=== PATIENT | male | born 1975 | race Caucasian/White ===

== ENCOUNTER 2024-07-24 10:44 | Emergency (ER) | payer OTHER ==
[~2024-07-24] VITALS: Ht 170.2 cm; Wt 58.0 kg
[2024-07-24 11:34] VITALS: O2SAT 100
[2024-07-24] MEDS ORDERED: ACETAMINOPHEN 325MG TABLET PO ONE (12:15)
[2024-07-24 12:24] LABS: HEMATOCRIT. 41.9 % (42.0-52.0); HEMOGLOBIN. 13.6 g/dL (14.0-18.0); MEAN CORPUSCULAR HGB CONC 32.4 g/dL (31.0-37.0); MEAN CORPUSCULAR VOLUME 92.6 fL (80.0-94.0); MEAN PLATELET VOLUME 8.9 fl (7.4-10.4); PLATELET 233 x1000/uL (130-400); RED BLOOD CELL COUNT 4.52 mill/uL (4.7-6.1); RED CELL DISTRIBUTION WIDTH 13.2 % (11.6-14.6); WHITE BLOOD COUNT 11.8 x1000/uL (4.5-11.0)
[2024-07-24 12:27] LABS: DIFFERENTIAL COMMENT 1
[2024-07-24 12:34] LABS: CHLORIDE 98 mEq/L (98-107); SODIUM 126 mEq/L (136-145)
[2024-07-24 12:35] LABS: CALCIUM 9.3 mg/dL (8.7-10.4); CARBON DIOXIDE 28 mEq/L (21-32)
[2024-07-24 12:40] LABS: CREATININE 0.9 mg/dL (0.6-1.3); UREA NITROGEN BLOOD 12 mg/dL (9-23)
[2024-07-24 12:42] LABS: ALANINE AMINOTRANSFERASE 19 IU/L (10-49); ALBUMIN 3.7 g/dL (3.2-4.8); ASPARTATE AMINOTRANSFERASE 21 IU/L (<34); PROTEIN TOTAL 6.5 g/dL (6.0-8.3)
[2024-07-24 12:47] LABS: GLUCOSE 405 mg/dL (70-105)
[2024-07-24] MEDS: LACTATED RINGERS 1,000 ML IV SCH (13:48)
[2024-07-24] MEDS: ACETAMINOPHEN 325MG TABLET PO NR (13:58)
[2024-07-24] MEDS: VANCOMYCIN 1.5GM/250ML 250 ML IV SCH (13:58)
[2024-07-24] MEDS ORDERED: PIPERACILLIN/TAZO 3.375G/50ML 50 ML IV SCH (14:00)
[2024-07-24] MEDS: INSULIN REGULAR (HUMULIN R) 1000UNITS/10ML VIAL SUBCUT ONE (14:19)
[2024-07-24 14:32] LABS: PLATELET ESTIMATE NORMAL
[2024-07-24 15:55] VITALS: BP 104/70; PULSE 103; RESP 20; TEMP 37.11408; O2SAT 97
== END 2024-07-24 16:25 | disposition left against medical advice (07) ==
LOC: ER 13:01 → EDBEDREQTM 14:20 → EDBEDREQ 14:20 → CANBEDREQ 16:12 → ER 16:25
DX: L97.529 Non-pressure chronic ulcer of other part of left foot with unspecified severity (principal); R73.9 Hyperglycemia, unspecified
CPT/HCPCS: 80053; 82962; 85025; 87040; 36415; 73630; 96365; 96372; 99285; J3370; J1815; Z7610 ×2; J2543

== ENCOUNTER 2024-08-19 19:06 | Emergency (ER) | payer OTHER ==
[~2024-08-19] VITALS: Ht 180.3 cm; Wt 73.0 kg
[2024-08-19 19:09] VITALS: O2SAT 98
[2024-08-19 19:35] VITALS: TEMP 37.55856; O2SAT 98
[2024-08-19 19:45] LABS: BASOPHILS % 0.2 % (0.0-2.0); EOSINOPHILS % 0.4 % (0.0-5.0); HEMATOCRIT. 37.7 % (42.0-52.0); HEMOGLOBIN. 12.5 g/dL (14.0-18.0); LYMPHOCYTES % 9.9 % (20.0-50.0); MEAN CORPUSCULAR HEMOGLOBIN 29.6 pg (28.0-32.0); MEAN CORPUSCULAR HGB CONC 33.2 g/dL (31.0-37.0); MEAN PLATELET VOLUME 9.8 fl (7.4-10.4); MONOCYTES % 9.4 % (2.0-8.0); NEUTROPHILS % 80.1 % (40.0-76.0); PLATELET 192 x1000/uL (130-400); RED BLOOD CELL COUNT 4.23 mill/uL (4.7-6.1); RED CELL DISTRIBUTION WIDTH 13.4 % (11.6-14.6); WHITE BLOOD COUNT 9.3 x1000/uL (4.5-11.0)
[2024-08-19] MEDS: SODIUM CHLORIDE 0.9% 1000ML BAG (SEPSIS BOLUS) IV ONE (19:54)
[2024-08-19] MEDS: PIPERACILLIN/TAZO 3.375G/50ML 50 ML IV ONE (19:54)
[2024-08-19 19:55] LABS: CHLORIDE 93 mEq/L (98-107); INR 1.1; POTASSIUM 5.3 mEq/L (3.5-5.1); PROTHROMBIN TIME 12.2 sec (9.6-11.0); SODIUM 123 mEq/L (136-145)
[2024-08-19 19:57] LABS: CALCIUM 9.1 mg/dL (8.7-10.4); CARBON DIOXIDE 25 mEq/L (21-32)
[2024-08-19] MEDS: VANCOMYCIN 1G PREMIX 200 ML IV ONE (20:00)
[2024-08-19 20:02] LABS: CREATININE 1.1 mg/dL (0.6-1.3); GLUCOSE 312 mg/dL (70-105); UREA NITROGEN BLOOD 31 mg/dL (9-23)
[2024-08-19 20:04] LABS: ALANINE AMINOTRANSFERASE 46 IU/L (10-49); ALBUMIN 3.6 g/dL (3.2-4.8); ASPARTATE AMINOTRANSFERASE 60 IU/L (<34); BILIRUBIN DIRECT 0.5 mg/dL (<=3.0)
[2024-08-19 20:05] LABS: BILIRUBIN TOTAL 1.2 mg/dL (0.1-1.0); PROTEIN TOTAL 6.2 g/dL (6.0-8.3)
[2024-08-19 21:03] VITALS: PULSE 120; RESP 16
[2024-08-19] MEDS: MORPHINE SULFATE 4 MG/ML INJ (FOR IV/IM USE) IV ONE (21:03)
[2024-08-19 22:40] VITALS: BP 124/88
== END 2024-08-19 22:11 | disposition short-term general hospital (02) ==
LOC: ER 19:06 → EDBEDREQ 20:23 → ER 22:11
DX: E11.621 Type 2 diabetes mellitus with foot ulcer (principal); F17.200 Nicotine dependence, unspecified, uncomplicated; F10.20 Alcohol dependence, uncomplicated; F19.90 Other psychoactive substance use, unspecified, uncomplicated; Z98.890 Other specified postprocedural states; Z85.841 Personal history of malignant neoplasm of brain
CPT/HCPCS: 99285; 96365; 96366; 96375; 80076; 80048; 83605; 85025; 85610; 86850; 86900; 86901; 87040; 36415; 84145; 73630; 96368; J2543; J3370; J2270; J7030

== ENCOUNTER 2025-10-14 10:59 | Inpatient (IN) | payer OTHER ==
[~2025-10-14] VITALS: Ht 182.9 cm; Wt 75.3 kg
[~2025-10-14 10:59] MED LIST: ASPI-1160 PO; COR3 PO; FURO40TA5 MT; LANTUSUD SUBCUT; LEVE500T19 PO; LIP40 PO; METF-416 PO; NICO-786 TP
[2025-10-14 11:01] VITALS: O2SAT 97
[2025-10-14] MEDS: SODIUM CHLORIDE 0.9% 1,000 ML IV ONE (11:40)
[2025-10-14] MEDS: MORPHINE SULFATE 4 MG/ML INJ (FOR IV/IM USE) IV ONE (11:40)
[2025-10-14] MEDS: ONDANSETRON HCL 4MG/2ML INJ IV ONE (11:41)
[2025-10-14 12:05] LABS: BASOPHILS % 0.2 % (0.0-2.0); EOSINOPHILS % 2.0 % (0.0-5.0); HEMATOCRIT. 41.7 % (42.0-52.0); HEMOGLOBIN. 13.3 g/dL (14.0-18.0); LYMPHOCYTES % 19.7 % (20.0-50.0); MEAN PLATELET VOLUME 9.5 fl (7.4-10.4); MONOCYTES % 8.9 % (2.0-8.0); NEUTROPHILS % 69.2 % (40.0-76.0); PLATELET 224 x1000/uL (130-400); RED BLOOD CELL COUNT 4.82 mill/uL (4.7-6.1); RED CELL DISTRIBUTION WIDTH 15.9 % (11.6-14.6)
[2025-10-14 12:30] LABS: CREATININE 0.9 mg/dL (0.6-1.3); UREA NITROGEN BLOOD 18 mg/dL (9-23)
[2025-10-14 12:32] LABS: ASPARTATE AMINOTRANSFERASE 36 IU/L (<34)
[2025-10-14 12:33] LABS: BILIRUBIN DIRECT 0.4 mg/dL (<=3.0); BILIRUBIN TOTAL 1.0 mg/dL (0.1-1.0); PROTEIN TOTAL 6.5 g/dL (6.0-8.3)
[2025-10-14 12:47] LABS: TROPONIN I HIGH SENSITIVITY 5516 ng/L (3.0-53)
[2025-10-14] MEDS: ENOXAPARIN 80MG/0.8ML SYR SUBCUT ONE (13:21)
[2025-10-14] MEDS ORDERED: MAGNESIUM/ALUMINUM HYDROXIDE/SIMETHICONE 30ML UDC PO PRN (14:15)
[2025-10-14] MEDS ORDERED: IPRATROPIUM/ALBUTEROL 0.5-3(2.5)MG/3ML NEB HHN PRN (14:15)
[2025-10-14] MEDS ORDERED: GUAIFENESIN 200MG/10ML SUGAR FREE UDC PO PRN (14:15)
[2025-10-14] MEDS ORDERED: ONDANSETRON HCL 4MG/2ML INJ IV PRN (14:15)
[2025-10-14] MEDS ORDERED: DOCUSATE SODIUM 100MG CAPSULE PO PRN (14:15)
[2025-10-14] MEDS ORDERED: ACETAMINOPHEN 325MG TABLET PO PRN (14:15)
[2025-10-14] MEDS ORDERED: FUROSEMIDE 40MG TABLET PO SCH (14:45)
[2025-10-14] MEDS: LEVETIRACETAM 500MG TABLET PO SCH (14:45)
[2025-10-14] MEDS: INSULIN LISPRO 100 UNITS/ML SUBCUT SCH (14:45)
[2025-10-14] MEDS ORDERED: ASPIRIN 325MG EC TABLET PO ONE (14:45)
[2025-10-14] MEDS: ASPIRIN 81MG TABLET PO SCH (14:45)
[2025-10-14 16:15] LABS: INR 1.1
[2025-10-14] MEDS: BLOOD SUGAR DIAGNOSTIC STRIP TEST SCH (17:00)
[2025-10-14 18:00] VITALS: BP 125/89; PULSE 90; RESP 20; O2SAT 98
[2025-10-14] MEDS: EMPAGLIFLOZIN 10MG TABLET PO SCH (18:24)
[2025-10-14] MEDS: FUROSEMIDE 40MG/4ML VIAL IVP SCH (18:24)
[2025-10-14 19:07] VITALS: BP 118/92; PULSE 92; RESP 17; TEMP 36.4736
[2025-10-14 20:00] VITALS: BP 124/99; PULSE 90; RESP 16; TEMP 36.6; O2SAT 99
[2025-10-14] MEDS: ATORVASTATIN CALCIUM 40MG TABLET PO SCH (20:23)
[2025-10-14] MEDS: INSULIN GLARGINE 100 UNITS/ML SUBCUT SCH (21:51)
[2025-10-14 22:00] VITALS: BP 115/86; PULSE 83; RESP 10; O2SAT 93
[2025-10-14] MEDS: ENOXAPARIN 100MG/ML SYR SUBCUT SCH (23:09)
[2025-10-15] VITALS (12 sets, daily range): BP systolic 94–127; BP diastolic 73–104; PULSE 76–99; RESP 8–23; TEMP 36.1–36.7; O2SAT 90–100
[2025-10-15 00:55] LABS: TROPONIN I HIGH SENSITIVITY 4572 ng/L (3.0-53)
[2025-10-15 05:59] LABS: BASOPHILS % 0.1 % (0.0-2.0); EOSINOPHILS % 2.9 % (0.0-5.0); HEMATOCRIT. 39.8 % (42.0-52.0); HEMOGLOBIN. 12.6 g/dL (14.0-18.0); LYMPHOCYTES % 27.9 % (20.0-50.0); MEAN PLATELET VOLUME 9.8 fl (7.4-10.4); MONOCYTES % 9.5 % (2.0-8.0); NEUTROPHILS % 59.6 % (40.0-76.0); PLATELET 211 x1000/uL (130-400); RED BLOOD CELL COUNT 4.64 mill/uL (4.7-6.1); RED CELL DISTRIBUTION WIDTH 15.8 % (11.6-14.6)
[2025-10-15 06:12] LABS: CREATININE 1.1 mg/dL (0.6-1.3); TROPONIN I HIGH SENSITIVITY 4641 ng/L (3.0-53)
[2025-10-15 06:13] LABS: TRIGLYCERIDE 35 mg/dL (0-150); UREA NITROGEN BLOOD 25 mg/dL (9-23)
[2025-10-15 06:14] LABS: LDL CHOLESTEROL 72 mg/dL (5-100); T4 FREE 1.26 ng/dL (0.89-1.76)
[2025-10-15] MEDS: SPIRONOLACTONE 12.5MG TABLET PO SCH (10:05)
[2025-10-15 23:19] LABS: TROPONIN I HIGH SENSITIVITY 3992 ng/L (3.0-53)
[2025-10-16] VITALS (10 sets, daily range): BP systolic 102–127; BP diastolic 69–100; PULSE 78–91; RESP 10–16; TEMP 36.7–36.9; O2SAT 96–100
[2025-10-16] MEDS: MELATONIN 3MG TABLET PO PRN (02:16)
[2025-10-16] MEDS: DEXTROSE 50% WATER 50ML SYRINGE IV PRN (08:17)
[2025-10-16] MEDS ORDERED: DIPHENHYDRAMINE 50MG/ML VIAL ONE (08:22)
[2025-10-16] MEDS ORDERED: VERAPAMIL HCL 2.5 MG/1 ML 2ML VIAL IV ONE (08:22)
[2025-10-16] MEDS ORDERED: LIDOCAINE HCL 1% 20ML VIAL ONE (08:22)
[2025-10-16] MEDS ORDERED: IODIXANOL 320MG/ML 100 ML BOTTLE IV ONE (08:22)
[2025-10-16] MEDS ORDERED: HEPARIN 1000 UNITS/ML 10ML ONE (08:22)
[2025-10-16] MEDS ORDERED: FENTANYL CITRATE/PF 50MCG/ML 2ML VIAL ONE (08:57)
[2025-10-16] MEDS ORDERED: MIDAZOLAM HCL 2 MG/2 ML VIAL ONE (08:57)
[2025-10-16] MEDS ORDERED: ACETAMINOPHEN 325MG TABLET PO PRN (10:00)
[2025-10-16] MEDS ORDERED: ATROPINE SULFATE 1MG/10ML SYR IV PRN (10:00)
[2025-10-16] MEDS: CLONIDINE 0.1MG TABLET PO PRN (18:08)
[2025-10-16 20:26] LABS: CLARITY URINE CLEAR (CLEAR); COLOR URINE YELLOW (YELLOW); GLUCOSE URINE 1+ (NEGATIVE); KETONES URINE NEGATIVE (NEGATIVE); LEUKOCYTE ESTERASE URINE NEGATIVE (NEGATIVE); NITRITE URINE NEGATIVE (NEGATIVE); OCCULT BLOOD URINE NEGATIVE (NEGATIVE); PH URINE 7.5 (4.5-8.0); PROTEIN URINE NEGATIVE (NEGATIVE); SPECIFIC GRAVITY URINE 1.007 (1.005-1.030); UROBILINOGEN URINE 0.2 E.U./dL (0.2-1.0)
[2025-10-16 20:48] LABS: *AMPHETAMINES SCREEN URINE NEGATIVE (NEGATIVE); *BARBITURATES SCREEN URINE NEGATIVE (NEGATIVE); *BENZODIAZEPINES SCREEN URINE NEGATIVE (NEGATIVE); *COCAINE SCREEN URINE NEGATIVE (NEGATIVE); CANNABINOID URINE SCREEN NEGATIVE (NEGATIVE); ECSTASY MDMA SCREEN URINE NEGATIVE (NEGATIVE); METHADONE URINE SCREEN NEGATIVE (NEGATIVE); OPIATES URINE SCREEN NEGATIVE (NEGATIVE); PHENCYCLIDINE URINE SCREEN NEGATIVE (NEGATIVE)
[2025-10-16 20:59] LABS: BACTERIA URINE TRACE; RBC URINE NONE SEEN /hpf (0-2); SQUAMOUS EPITHELIAL CELL URINE RARE /lpf (RARE/1+); WBC URINE NONE SEEN /hpf (0-2)
[2025-10-17] VITALS: BP 109/75; PULSE 84; RESP 16; TEMP 37; O2SAT 97
[2025-10-17 04:00] VITALS: BP 101/63; PULSE 83; RESP 15; TEMP 36.8; O2SAT 96
[2025-10-17 08:00] VITALS: BP 109/72; PULSE 84; RESP 11; TEMP 36.4; O2SAT 98
[2025-10-17 08:21] LABS: BASOPHILS % 0.1 % (0.0-2.0); EOSINOPHILS % 0.4 % (0.0-5.0); HEMATOCRIT. 39.5 % (42.0-52.0); HEMOGLOBIN. 12.9 g/dL (14.0-18.0); LYMPHOCYTES % 8.1 % (20.0-50.0); MEAN PLATELET VOLUME 9.4 fl (7.4-10.4); MONOCYTES % 8.5 % (2.0-8.0); NEUTROPHILS % 82.9 % (40.0-76.0); PLATELET 211 x1000/uL (130-400); RED BLOOD CELL COUNT 4.69 mill/uL (4.7-6.1); RED CELL DISTRIBUTION WIDTH 15.5 % (11.6-14.6)
[2025-10-17 08:39] LABS: CREATININE 1.1 mg/dL (0.6-1.3); UREA NITROGEN BLOOD 20 mg/dL (9-23)
[2025-10-17 20:00] VITALS: BP 127/93; PULSE 72; RESP 17; TEMP 36.8; O2SAT 100
[2025-10-17] MEDS: INSULIN LISPRO 100 UNITS/ML SUBCUT SCH (23:11)
[2025-10-18] VITALS (7 sets, daily range): BP systolic 104–129; BP diastolic 73–107; PULSE 81–89; RESP 15–19; TEMP 36.6–37.1; O2SAT 100
[2025-10-18] MEDS: LOSARTAN 25 MG TABLET PO SCH (09:30)
[2025-10-18 13:43] LABS: BASOPHILS % 0.4 % (0.0-2.0); EOSINOPHILS % 2.0 % (0.0-5.0); HEMATOCRIT. 43.3 % (42.0-52.0); HEMOGLOBIN. 13.8 g/dL (14.0-18.0); LYMPHOCYTES % 21.7 % (20.0-50.0); MEAN PLATELET VOLUME 9.9 fl (7.4-10.4); MONOCYTES % 10.6 % (2.0-8.0); NEUTROPHILS % 65.3 % (40.0-76.0); PLATELET 231 x1000/uL (130-400); RED BLOOD CELL COUNT 5.08 mill/uL (4.7-6.1); RED CELL DISTRIBUTION WIDTH 15.5 % (11.6-14.6)
[2025-10-18 14:01] LABS: CREATININE 1.1 mg/dL (0.6-1.3); UREA NITROGEN BLOOD 24 mg/dL (9-23)
[2025-10-18] MEDS: ACETAMINOPHEN 325MG TABLET PO PRN (21:35)
[2025-10-18] MEDS: MAGNESIUM 2 G PREMIX 50 ML IV SCH (21:39)
[2025-10-19] VITALS: BP 95/73; PULSE 76; RESP 15; TEMP 36.2; O2SAT 100
[2025-10-19 07:11] LABS: CREATININE 1.3 mg/dL (0.6-1.3); UREA NITROGEN BLOOD 25 mg/dL (9-23)
[2025-10-19 07:13] LABS: PHOSPHORUS 4.4 mg/dL (2.5-4.9)
[2025-10-19 07:21] LABS: BASOPHILS % 0.2 % (0.0-2.0); EOSINOPHILS % 2.3 % (0.0-5.0); HEMATOCRIT. 45.4 % (42.0-52.0); HEMOGLOBIN. 14.7 g/dL (14.0-18.0); LYMPHOCYTES % 20.6 % (20.0-50.0); MEAN PLATELET VOLUME 9.7 fl (7.4-10.4); MONOCYTES % 13.0 % (2.0-8.0); NEUTROPHILS % 63.9 % (40.0-76.0); PLATELET 232 x1000/uL (130-400); RED BLOOD CELL COUNT 5.32 mill/uL (4.7-6.1); RED CELL DISTRIBUTION WIDTH 15.7 % (11.6-14.6)
[2025-10-19 08:00] VITALS: BP 115/77; PULSE 83; RESP 13; TEMP 36.8; O2SAT 97
[2025-10-19] MEDS: ENOXAPARIN 40MG/0.4ML SYR SUBCUT SCH (08:57)
[2025-10-19 12:00] VITALS: BP 97/72; PULSE 76; RESP 13; TEMP 36.6; O2SAT 99
[2025-10-19] MEDS ORDERED: EMPA10TA PO (13:02)
[2025-10-19] MEDS ORDERED: LOSA25TA26 PO (13:02)
[2025-10-19] MEDS ORDERED: SPIR25TA PO (13:02)
[2025-10-19 13:44] VITALS: BP 103/77; PULSE 80; RESP 11; TEMP 98.1
== END 2025-10-19 14:50 | disposition home or self-care (01) | DRG 190 ==
LOC: ER 10:59 → EDBEDREQ 11:28 → 5EST 12:57 → EDBEDREQ 12:58 → EDBEDREQSVC 12:58 → EDBEDREQTM 12:58 → 3WST 10-16 10:34
PROVIDERS: ADMIT Internal Medicine; ATTEND Internal Medicine
PROC: 4A023N7 Measurement of Cardiac Sampling and Pressure, Left Heart, Percutaneous Approach (ICD-10-PCS; principal; 2025-10-16)
PROC: B211YZZ Fluoroscopy of Multiple Coronary Arteries using Other Contrast (ICD-10-PCS; 2025-10-16)
DX: I21.4 Non-ST elevation (NSTEMI) myocardial infarction (principal); I50.23 Acute on chronic systolic (congestive) heart failure; E11.65 Type 2 diabetes mellitus with hyperglycemia; G40.909 Epilepsy, unspecified, not intractable, without status epilepticus; F19.10 Other psychoactive substance abuse, uncomplicated; I42.0 Dilated cardiomyopathy; E11.69 Type 2 diabetes mellitus with other specified complication; F17.210 Nicotine dependence, cigarettes, uncomplicated; S00.81XA Abrasion of other part of head, initial encounter; Z63.4 Disappearance and death of family member; Z79.4 Long term (current) use of insulin; Z79.84 Long term (current) use of oral hypoglycemic drugs; Z79.899 Other long term (current) drug therapy; Z80.7 Family history of other malignant neoplasms of lymphoid, hematopoietic and related tissues; Z91.199 Patient's noncompliance with other medical treatment and regimen due to unspecified reason; X58.XXXA Exposure to other specified factors, initial encounter; Y93.89 Activity, other specified; Y92.89 Other specified places as the place of occurrence of the external cause; Y99.8 Other external cause status
CPT/HCPCS: 36415; 71045; 74176; 80048; 80061; 80076; 80305; 81003; 82150; 82553; 82962; 83036; 83735; 83880; 84100; 84439; 84443; 84484; 85025; 87426; 93005; 93306; 93458; 93880; 93970; 94060; 96361; 96372; 96374; 96375; 99291; A4606; C1769; C1887; C1893; J1200; J1644; J1650; J1815; J1938; J2003; J2250; J2270; J2405; J3010; J3475; J3490; J7030; Q9967